=== PATIENT | male | born 1990 | race African-American/Black ===

== ENCOUNTER 2017-12-21 16:30 | Emergency (ER) | payer SELFPAY ==
[2017-12-21 16:31] VITALS: BP 141/82; PULSE 93; RESP 16; TEMP 36.4; O2SAT 100; BMI 29.0
--- NOTE | 2017-12-21 17:16 | ED.VISSUMM ---
- ER Visit Summary Date of Service: 12/21/17 Chief Complaint: Facial rash and ear infection History of Present Illness: The patient is a 27 M patient reports over the course of the last 4-5 days that he has had an onset of right-sided ear pain. He states that this is continuous associated with rhinorrhea sore throat and subjective fevers. Patient states that he also has had a development of some rashes on his face and his back. He states that these are mildly painful. He does report that he has a sick contact in his son who recently had a staph infection that required antibiotic treatment. Patient has a history of mild asthma. He denies any other medical history. Review of systems otherwise negative. Physical Examination: Vital signs are within normal limits, patient is afebrile. General: Patient is well-nourished well-developed and in no acute distress. Head: Normocephalic, atraumatic Eyes: Pupils equal round and reactive bilaterally, extra occular motion intact bialterally ENT: Moist mucous membranes, TMs clear bilaterally Neck: Supple, no lymphadenopathy, no JVD, no meningismus CVS: Heart regular rate and rhythm, no murmurs, rubs or gallops, radial pulses 2+ bilaterally Resp: Respirations nondistressed, lung sounds clear bilaterally Abdomen: Soft, nontender, nondistended, no palpable masses, normal bowel sounds Back: Nontender Extremities: Nontender, atraumatic, active full range of motion, no peripheral edema Skin: warm, evidence of some crusting lesions in the patient's left outer ear as well as centrally clearing lesions on the patient left and right cheek and on his back Neuro: Alert and oriented x 4, CN 2-12 intact, no lateralizing neurological defecits Psyc: Normal affect Test Results: None indicated Emergency Department Course and Treatment: Patient presented with a rash. The aspects of this rash have both characteristics of impetigo as well as a potential staph infection given his recent exposure. I will place the patient on a course of doxycycline and Bactroban. Disposition: Discharge Impression: 1. Impetigo This note was generated with [employer] software. It may contain incorrect words, spelling, and punctuation that were not noted in review of the chart prior to signing ED Disposition - Plan for ED Patient: Chief Complaint: Rash Instructions: ED Impetigo Prescriptions: Doxycycline Monohydrate 100 mg PO BID #20 cap Mupirocin [Bactroban] 1 applic TOPICAL TID #1 tube Referrals: Care Physician,No Primary [Primary Care Provider] -
--- NOTE | 2017-12-21 17:32 | ED.RN ---
pt given written and verbal discharge instructions and home going prescriptions. pt verbalizes understanding and denies any further questions. pt ambulates out of dept.
== END 2017-12-21 17:33 | disposition home or self-care (01) ==
PROVIDERS: Emergency Provider Emergency Medicine
DX: L01.00 Impetigo, unspecified (principal); J45.909 Unspecified asthma, uncomplicated; Z72.0 Tobacco use
CPT/HCPCS: 99283

== ENCOUNTER 2018-11-02 12:02 | Emergency (ER) | payer MEDICAID, SELFPAY ==
[2018-11-02 12:03] VITALS: BP 159/72; PULSE 75; RESP 16; TEMP 36.7; O2SAT 100; BMI 29.5
--- NOTE | 2018-11-02 12:22 | RAD_ITS ---
STUDY: X-RAY - RIGHT FOOT CLINICAL: Ulcer between the fourth and fifth toes. TECHNIQUE: 3 view(s) of the foot. COMPARISON: None. FINDINGS: Normal talus, calcaneus, and tarsal bones. There is pes planus. Normal visualized subtalar, talonavicular, calcaneocuboid, tarsal and tarsometatarsal articulations. Normal metatarsi. Normal metatarsophalangeal joint of the great toe. Normal tibial and fibular sesamoid bones. Normal interphalangeal joint of the great toe. Normal phalanges of the great toe. Normal second through fifth metatarsophalangeal joints. Normal interphalangeal joints and phalanges of the lesser toes. The soft tissue structures are unremarkable. RAD/Foot min 3 Views IMPRESSION: No radiographic evidence of osteomyelitis. Electronically Signed: Adi Edmondson MD at 12:46 EDT Tel , Service support ,
[2018-11-02] MEDS: Naproxen 500 MG Tablet PO (12:44)
--- NOTE | 2018-11-02 13:06 | ED.VISSUMM ---
- ER Visit Summary Date of Service: 11/02/18 Chief Complaint: Wound History of Present Illness: The patient is a 28 M who presents with a wound between his right fourth and fifth toes. He sustained this remotely with an injury. It reopened several days ago. He has pain to the area but no other associated symptoms. Physical Examination: There is a fissure between his right fourth and fifth toes. I do not appreciate any other abnormalities. He complains of tenderness to the area. Test Results: X-rays show no signs of osteomyelitis Emergency Department Course and Treatment: Patient will be treated with anti-inflammatories. Follow-up with wound center. Treatment Plan: Above Disposition: Discharge Impression: 1. Right toe ulceration, chronic This note was generated with [employer]. dictation software. It may contain incorrect words, spelling, and punctuation that were not noted in review of the chart prior to signing ED Disposition - Plan for ED Patient: Referrals: Care Physician,No Primary [Primary Care Provider] -
--- NOTE | 2018-11-02 13:15 | DCINST.ED_ITS ---
ED Disposition - Plan for ED Patient: Instructions: Treating Pressure Ulcers of the Foot Referrals: Pepito Pizarro MD [STAFF PHYSICIAN] - Additional Instructions: follow up with [facility]
== END 2018-11-02 13:24 | disposition home or self-care (01) ==
LOC: ED 12:30
PROVIDERS: Emergency Provider Emergency Medicine
DX: L97.519 Non-pressure chronic ulcer of other part of right foot with unspecified severity (principal)
CPT/HCPCS: 73630; 99283

== ENCOUNTER 2021-09-18 11:49 | Emergency (ER) | payer MEDICAID, SELFPAY ==
[2021-09-18 11:50] VITALS: BP 164/95; PULSE 91; RESP 14; TEMP 36.2; O2SAT 99; BMI 33.3
--- NOTE | 2021-09-18 11:55 | ED.RN ---
AFTER THIS RN TRIAGED PATIENT AND CONFIRMED PATIENT WANTED TO DO WORKERS COMP HE DECIDED HE DOESN'T. PT STATES I HAVE [employer] AND IT WILL COVER WHAT EVER I NEED WITH NO DEDUCTIBLE. RN EXPLAINED THE WORKERS COMP PROCESS AGAIN AND PATIENT STILL STATES HE DOESN'T WANT TO COMPLETE WORKERS COMP.
--- NOTE | 2021-09-18 12:03 | EX.ED.UPPERE ---
HPI History of Present Illness Chief Complaint: Laceration Detail of Chief Complaint: Laceration left index and long finger Informant: patient and spouse/S.O. Occured/Mechanism Mechanism/Context: Yes blunt trauma Comment: Patient was using hedger. He cut his left index and long finger volar side at the MCP joint Onset/Context/Timing Onset: Hours Quality of Pain: Dull and Aching Location: Volar surface left index and long finger MCP joint Current Severity: Mild Maximum Severity: Moderate Worsened by: Initial injury Relieved by: Not applicable Associated Symptoms Associated Symptoms: Positive for Loss of Funtion (Uncertain); Negative for Parasthesia or Weakness Narrative Narrative: Patient is a 31-year-old [id number] male who was hedging bushes with electric clipper. Patient sustained laceration/injury to his left index and long finger on the volar surface. Patient denies paresthesia, anesthesia. Last tetanus is unknown. He describes a throbbing type discomfort. He denies any other symptoms or injury. Tetanus Immunization: Unknown Prior similar symptoms: No Recent Illness/Hospitalization: No PFSH PFSH Medical History no medical history Home Medications doxycycline monohydrate 100 mg capsule 100 mg PO BID #20 caps 12/21/17 [Rx Last Taken Unknown] mupirocin 2 % topical ointment 1 applic topical TID #1 tube 12/21/17 [Rx Last Taken Unknown] Allergy/AdvReac Type Severity Reaction Status Date / Time No Known Allergies Allergy Verified 09/18/21 11:53 Surgical History no surgical history Social History (Updated 09/18/21 @ 12:[address] George Camejo MD) household members: spouse Smoking Status: Current every day smoker tobacco type: cigarettes substance use type: does not use ROS ROS ED Musculoskeletal Musculoskeletal: Denies back pain, myalgias or neck pain Integumentary Reports other Details: Laceration as previously described ; Denies abscess, Abrasions or rash Neurologic Neurologic: Denies paresthesias or weakness Psychiatric Psychiatric: Reports anxiety Hematologic/Lymphatic Hematologic/Lymphatic: Denies easy bleeding or easy bruising EXAM Physical Exam Const Vital Signs: 09/18/21 11:50 Temperature 97.2 F L Temperature Source Temporal Pulse Rate 91 Respiratory Rate 14 Blood Pressure 164/95 H Blood Pressure Mean 118 Pulse Ox 99 Oxygen Delivery Method Room Air Positive well nourished and well developed General Appearance ED: well developed and NAD; Negative for cyanotic or diaphoretic HEENT Reports moist mucous membranes Eyes PERRL and EOMs intact bilaterally Resp normal respiratory effort Cardio regular rate and regular rhythm Extremity full ROM; Negative for normal to inspection Extremity Narrative: Patient has laceration volar side of the left index and ring finger which also involves the volar radial and ulnar side of forementioned digits. Capillary refill is normal. Two-point discrimination is normal. The flexor digitorum superficialis and flexor digitorum profundus are functionally intact. Median, radial and ulnar function intact. There is no injury to the nail or nailbed. Radial pulses palpable. Neuro oriented x3, CN's II-XII intact bilaterally, moves all extremities, no focal motor deficits and no sensory deficits noted Sensorium / Orientation: alert Psych mental status grossly normal Mood & Affect: anxious Skin Lesions: no lesions Rashes: no rashes Trauma: laceration flap; Negative for no lacerations or abrasions MDM MDM MDM Narrative Medical decision making narrative: X-ray was obtained to rule out foreign body and rule out involvement of the proximal phalanx of the left index and long finger. The hand was anesthetized by radial and median nerve block. A total of 7 cc of 1% lidocaine was infiltrated. Radiography Diagnostic Testing: Three-view x-ray of the left hand and independently reviewed and interpreted by me at 1216 reveals no evidence of fracture, subluxation or dislocation. There is no foreign body. There is soft tissue defect noted. Procedures Other Procedures Procedure(s): 1. The laceration involving the index finger is closer to the PIP joint than it is to the MCP joint. The wound was explored. There is no visualization of the flexor tendons. There is no visualization of the joint. The total length of the laceration is 8 cm. It is a flap with multiple cuts. Numerous simple interrupted sutures were placed using 5-0 Ethilon. Prior to suturing the patient was anesthetized as previously described. The wound was irrigated return to 50 cc of normal saline. 2. The laceration of the long finger is 3 cm in length and there is a small V-shaped laceration proximal to the semicircumferential laceration. Simple and up sutures was placed using 5-0 Ethilon. Patient tolerated procedure well. This wound was irrigated with 250 cc of normal saline as well. Exploration of the wound does not reveal visualization of the flexor tendons. Discharge Plan Triage Chief Complaint: Laceration ED Provider: George Camejo Dx/Rx/DC Orders Clinical Impression: Laceration of left index finger, Laceration of left middle finger without damage to nail Prescriptions: No Action doxycycline monohydrate 100 MG capsule 100 mg PO BID Qty: 20 0RF mupirocin 1 APPLIC ointment 1 applic Topical TID Qty: 1 0RF Primary Care Provider: Care Physician,No Primary Referrals: Alexsandra Pandey DO [Med Staff - Critical Care Unit Nurse] - 10-14 Days suture removal Care Physician,No Primary [Primary Care Provider] - Activity Restrictions/Additional Instructions: 1. Do not remove dressing for 48 hours 2. Keep wound absolutely clean and dry for the next 5 days 3. After removing dressing clean wound with peroxide on a Q-tip then apply bacitracin ointment. This is to be performed 3 times a day 4. If there is any concern for infection do not hesitate to return Disposition Disposition: Home, Self Care
[2021-09-18] MEDS: Lidocaine 1% (20 ml mdv) 20 ML Vial INFILT (12:05)
--- NOTE | 2021-09-18 12:10 | RAD_ITS ---
STUDY: X-RAY - LEFT HAND REASON FOR EXAM: Male, 31 years old. Injury/Pain TECHNIQUE: 3 view(s) of the hand. COMPARISON: None. FINDINGS: Normal radiocarpal articulation. Normal distal radioulnar joint. Normal visualized carpal bones. Normal carpal articulations Normal carpometacarpal articulation of the thumb. Normal second through fifth carpometacarpal joints. Normal metacarpi. Normal metacarpophalangeal joint of the thumb. Normal interphalangeal joint of the thumb. Normal proximal and distal phalanges of the thumb. Normal metacarpophalangeal joints of the second through fifth fingers. Normal proximal and distal interphalangeal joints of the second through fifth fingers. Normal phalanges of the second through fifth fingers. Soft tissue laceration overlying the second and third digits. RAD/Hand Min 3 Views IMPRESSION: Soft tissue laceration overlying the second and third digits. Soft tissue swelling. Electronically Signed: Conner Lafleur MD at 12:30 EDT ,
--- NOTE | 2021-09-18 12:37 | ED.RN ---
pt. states not turning into workers comp.
[2021-09-18] MEDS: Diphth,Pertuss(Acell),Tet Vac 0.5 ML Vial IM (13:08)
[2021-09-18 13:22] VITALS: BP 129/78; PULSE 78; RESP 16; TEMP 37.2; O2SAT 100
== END 2021-09-18 13:21 | disposition home or self-care (01) ==
PROVIDERS: Emergency Provider Emergency Medicine; Visit Provider Emergency Medicine
DX: S61.211A Laceration without foreign body of left index finger without damage to nail, initial encounter (principal); S61.213A Laceration without foreign body of left middle finger without damage to nail, initial encounter; W29.3XXA Contact with powered garden and outdoor hand tools and machinery, initial encounter; Y93.H2 Activity, gardening and landscaping; F17.210 Nicotine dependence, cigarettes, uncomplicated; Z23 Encounter for immunization
CPT/HCPCS: 12004; 73130; 90471; 90715; 99284